=== PATIENT | female | born 1950 | race American Indian/Alaskan Native ===

== ENCOUNTER 2017-01-21 21:05 | Emergency (ER) | payer MEDICARE ==
[2017-01-21] MEDS ORDERED: NACL 0.9% 1000 ML 1,000 ML IV ONE (23:06)
[2017-01-21] MEDS ORDERED: ZOFRAN IV ONE (23:06)
[2017-01-21] MEDS ORDERED: MORPHINE IV ONE (23:06)
[2017-01-21 23:37] LABS: Basophils % (Auto) 0.8 % (0.0-1.8); Eosinophils % (Auto) 2.8 % (0.0-4.3); Hemoglobin 10.7 gm/dl (10.1-14.3); Mean Corpuscular HGB Conc 32 % (30-34); Mean Corpuscular Hemoglobin 30 pg (28-32); Mean Corpuscular Volume 92 fl (79-97); Platelet Count 316 K/mm3 (140-440); Red Cell Distribution Width 14.1 % (13.2-15.2); White Blood Count 5.6 K/mm3 (4.5-11.0)
[2017-01-21 23:55] LABS: Anion Gap 16 mmol/L; Blood Urea Nitrogen 38 mg/dL (7-17); Calcium 9.6 mg/dL (8.4-10.2); Carbon Dioxide 28 mmol/L (22-30); Chloride 99.5 mmol/L (98-107); Glucose 225 mg/dL (65-100); Potassium 3.5 mmol/L (3.6-5.0); Sodium 140 mmol/L (137-145)
[2017-01-22] MEDS ORDERED: NACL ONE (00:28)
--- NOTE | 2017-01-22 01:02 | Emergency Department Report ---
ED Abdominal Pain HPI - General Chief Complaint: Abdominal Pain Stated Complaint: ABD PAIN Time Seen by Provider: 01/21/17 22:57 Source: patient, EMS Mode of arrival: Stretcher Limitations: No Limitations - History of Present Illness Initial Comments: 66 year old female with hx of DM, CVA, and renal insufficiency presents with generalized abdominal pain for about 2 days that is worse today. family member ( son) is present and states that she was seen at [facility] and had an infection in her bowel. family cannot specify what type of infection. they states that she was admitted for 3 days and discharged with fu with Dr bishop, her GI doctor. states that the pain today is similar with associated NV. denies fever, cough, cp, sob. Severity scale (0 -10): 6 - Related Data Home Medications Medication Instructions Recorded Confirmed Last Taken Gabapentin [Neurontin] 400 mg PO BID 01/21/17 01/21/17 01/21/17 Hydrochlorothiazide [Hctz] 12.5 mg PO QDAY 01/21/17 01/21/17 01/21/17 Losartan [Cozaar] 100 mg PO QDAY 01/21/17 01/21/17 01/21/17 Simvastatin 80 mg PO QHS 01/21/17 01/21/17 01/21/17 cloNIDine [Catapres] 0.2 mg PO Q8HR 01/21/17 01/21/17 01/21/17 hydrALAZINE [Apresoline TAB] 50 mg PO TID 01/21/17 01/21/17 01/21/17 Previous Rx's Medication Instructions Recorded Last Taken Type Insulin Glargine,Hum.rec.anlog 20 unit SQ QHS #1 bottle 03/15/14 01/21/17 Rx [Lantus] Allergies Allergy/AdvReac Type Severity Reaction Status Date / Time metoclopramide HCl Allergy Swelling Verified 08/08/13 10:49 [From [facility]] ED Review of Systems ROS: Stated complaint: ABD PAIN Other details as noted in HPI Constitutional: denies: chills, fever Eyes: denies: eye pain, eye discharge, vision change ENT: denies: ear pain, throat pain Respiratory: denies: cough, shortness of breath, wheezing Cardiovascular: denies: chest pain, palpitations Endocrine: no symptoms reported Gastrointestinal: abdominal pain, nausea, vomiting. denies: diarrhea Genitourinary: denies: urgency, dysuria, discharge Musculoskeletal: denies: back pain, joint swelling, arthralgia Skin: denies: rash, lesions Neurological: denies: headache, weakness, paresthesias Psychiatric: denies: anxiety, depression Hematological/Lymphatic: denies: easy bleeding, easy bruising ED Past Medical Hx - Past Medical History Previous Medical History?: Yes Hx Hypertension: Yes Hx CVA: Yes Hx Heart Attack/AMI: No Hx Congestive Heart Failure: Yes Hx Diabetes: Yes Hx Deep Vein Thrombosis: No Hx Pulmonary Embolism: No Hx Liver Disease: No Hx Renal Disease: No Hx Sickle Cell Disease: No Hx Arthritis: No Hx Seizures: No Hx Kidney Stones: No Hx Asthma: No Hx COPD: No Hx Tuberculosis: No Hx Dementia: No Hx HIV: No - Surgical History Past Surgical History?: Yes Hx Coronary Stent: Yes Hx Open Heart Surgery: No Hx Pacemaker: No Hx Internal Defibrillator: No Hx Cholecystectomy: No Hx Appendectomy: No Hx Breast Surgery: No Additional Surgical History: Lumpectomy x2 (non cancerous), Left AKA - Social History Smoking Status: Never Smoker Substance Use Type: None - Medications Home Medications: Home Medications Medication Instructions Recorded Confirmed Last Taken Type Insulin Glargine,Hum.rec.anlog 20 unit SQ QHS #1 bottle 03/15/14 01/21/17 Rx [Lantus] Gabapentin [Neurontin] 400 mg PO BID 01/21/17 01/21/17 01/21/17 History Hydrochlorothiazide [Hctz] 12.5 mg PO QDAY 01/21/17 01/21/17 01/21/17 History Losartan [Cozaar] 100 mg PO QDAY 01/21/17 01/21/17 01/21/17 History Simvastatin 80 mg PO QHS 01/21/17 01/21/17 01/21/17 History cloNIDine [Catapres] 0.2 mg PO Q8HR 01/21/17 01/21/17 01/21/17 History hydrALAZINE [Apresoline TAB] 50 mg PO TID 01/21/17 01/21/17 01/21/17 History ED Physical Exam - General Limitations: No Limitations General appearance: alert, in no apparent distress - Head Head exam: Present: atraumatic, normocephalic - Eye Eye exam: Present: normal appearance - ENT ENT exam: Present: mucous membranes moist - Neck Neck exam: Present: normal inspection - Respiratory Respiratory exam: Present: normal lung sounds bilaterally. Absent: respiratory distress - Cardiovascular Cardiovascular Exam: Present: regular rate, normal rhythm. Absent: systolic murmur, diastolic murmur, rubs, gallop - GI/Abdominal GI/Abdominal exam: Present: soft, tenderness, normal bowel sounds. Absent: distended, guarding, rebound, rigid, diminished bowel sounds - Rectal Rectal exam: Present: deferred - Extremities Exam Extremities exam: Present: normal inspection - Back Exam Back exam: Present: normal inspection - Neurological Exam Neurological exam: Present: alert, oriented X3 - Psychiatric Psychiatric exam: Present: normal affect, normal mood - Skin Skin exam: Present: warm, dry, intact, normal color. Absent: rash ED Course Vital Signs 01/21/17 01/21/17 22:34 22:45 Temperature 98.0 F Pulse Rate 80 81 Respiratory 16 16 Rate Blood Pressure 165/79 Blood Pressure 165/79 165/79 [Left] O2 Sat by Pulse 98 165 H Oximetry ED Medical Decision Making - Lab Data Result diagrams: 01/21/17 23:21 01/21/17 23:21 Critical care attestation.: If time is entered above; I have spent that time in minutes in the direct care of this critically ill patient, excluding procedure time. ED Disposition Condition: Stable Instructions: Abdominal Pain (ED) Referrals: PRIMARY CARE, [Primary Care Provider] - 3-5 Days
--- NOTE | 2017-01-22 02:11 | Cat Scan Report ---
FINAL REPORT PROCEDURE: CT ABDOMEN PELVIS W CON TECHNIQUE: Computerized axial tomography of the abdomen and pelvis was performed after the IV injection of iodinated nonionic contrast. HISTORY: luq and lower abdominal pain COMPARISON: 02/04/2014 FINDINGS: Visualized lower thorax: There is a large pericardial effusion. There is atelectasis at the left lung base.. Liver: Normal size and attenuation. Spleen: Normal size and attenuation. Gallbladder and biliary system: Normal. Pancreas: Normal. Adrenals: Normal. Kidneys: Normal. GI tract: There is narrowing and thickening of the sigmoid colon. This could be due to contraction or colitis. Mass considered unlikely but colonoscopy may be indicated. There is a large amount of stool in the colon. There diverticulosis of the sigmoid and left colon. There is no diverticulitis. The stomach and small bowel and appendix are normal.. Lymph nodes and mesentery: Normal. Vasculature: Normal. Bladder: Normal. Reproductive organs: Uterus is intact. Ovaries are unremarkable.. Peritoneum: There is no ascites, free air, abscess or adenopathy.. Musculoskeletal structures: No significant abnormality. Other: None. IMPRESSION: There is narrowing and thickening of the sigmoid colon. This could be due to contraction or colitis. Mass considered unlikely but colonoscopy may be indicated. There is no colonic obstruction. There is a large amount of stool in the colon. There diverticulosis of the sigmoid and left colon. There is no diverticulitis. The stomach and small bowel and appendix are normal.. Uterus is intact. Ovaries are unremarkable.. There is no ascites, free air, abscess or adenopathy..
[2017-01-22 02:56] LABS: Bacteria,Urine 1+ /HPF (Negative); Bilirubin,Urine NEG (Negative); Blood,Urine NEG (Negative); Ketones,Urine NEG (Negative); Leukocyte Esterase,Urine LG (Negative); Mucus,Urine FEW /HPF; Nitrite,Urine NEG (Negative); Urobilinogen,Urine < 2.0 mg/dL (<2.0)
[2017-01-22] MEDS ORDERED: LEVAQUIN PO ONE (03:35)
[2017-01-22] MEDS ORDERED: FLAGYL PO ONE (03:35)
--- NOTE | 2017-01-22 03:37 | Event Note ---
Date: 01/22/17 Patient presented with nonspecific abdominal pain. CT scan suggests distal colitis versus constipation versus less likely malignancy. Laboratory studies reviewed, unremarkable, urinalysis suggestive of urinary tract infection. I personally gone back to reevaluate the patient. Her abdomen is soft and benign, and she is tolerating liquid feeds, and she feels improved. She'll be started empirically on Cipro, Flagyl, she will be given pain medication, nausea medication, the patient and family are close instructed to follow up with outpatient gastroenterology. They're specifically counseled to follow up with gastroenterology to exclude tumor/cancer/ malignancy. Family and patient verbalize understanding. Vital Signs 01/21/17 01/21/17 22:34 22:45 Temperature 98.0 F Pulse Rate 80 81 Respiratory 16 16 Rate Blood Pressure 165/79 Blood Pressure 165/79 165/79 [Left] O2 Sat by Pulse 98 165 H Oximetry Lab Results 01/21/17 01/21/17 01/22/17 Range/Units 23:21 23:21 00:16 WBC 5.6 (4.5-11.0) K/mm3 RBC 3.60 L (3.65-5.03) M/mm3 Hgb 10.7 (10.1-14.3) gm/dl Hct 33.0 (30.3-42.9) % MCV 92 (79-97) fl MCH 30 (28-32) pg MCHC 32 (30-34) % RDW 14.1 (13.2-15.2) % Plt Count 316 (140-440) K/mm3 Lymph % (Auto) 34.1 (13.4-35.0) % Scott % (Auto) 6.8 (0.0-7.3) % Eos % (Auto) 2.8 (0.0-4.3) % Baso % (Auto) 0.8 (0.0-1.8) % Lymph # 1.9 (1.2-5.4) K/mm3 Scott # 0.4 (0.0-0.8) K/mm3 Eos # 0.2 (0.0-0.4) K/mm3 Baso # 0.0 (0.0-0.1) K/mm3 Seg Neutrophils % 55.5 (40.0-70.0) % Seg Neutrophils # 3.1 (1.8-7.7) K/mm3 Sodium 140 (137-145) mmol/L Potassium 3.5 L (3.6-5.0) mmol/L Chloride 99.5 (98-107) mmol/L Carbon Dioxide 28 (22-30) mmol/L Anion Gap 16 mmol/L BUN 38 H (7-17) mg/dL Creatinine 0.8 (0.7-1.2) mg/dL Estimated GFR > 60 ml/min BUN/Creatinine Ratio 47.50 % Glucose 225 H (65-100) mg/dL Calcium 9.6 (8.4-10.2) mg/dL Lipase 43 (13-60) units/L Urine Color (Yellow) Urine Turbidity (Clear) Urine pH (5.0-7.0) Ur Specific [place] (1.003-1.030) Urine Protein (Negative) mg/dL Urine Glucose (UA) (Negative) mg/dL Urine Ketones (Negative) mg/dL Urine Blood (Negative) Urine Nitrite (Negative) Urine Bilirubin (Negative) Urine Urobilinogen (<2.0) mg/dL Ur Leukocyte Esterase (Negative) Urine WBC (Auto) (0.0-6.0) /HPF Urine RBC (Auto) (0.0-6.0) /HPF U Epithel Cells (Auto) (0-13.0) /HPF Urine Bacteria (Auto) (Negative) /HPF Amorphous Crystals Urine Mucus /HPF 01/22/17 Range/Units 02:30 WBC (4.5-11.0) K/mm3 RBC (3.65-5.03) M/mm3 Hgb (10.1-14.3) gm/dl Hct (30.3-42.9) % MCV (79-97) fl MCH (28-32) pg MCHC (30-34) % RDW (13.2-15.2) % Plt Count (140-440) K/mm3 Lymph % (Auto) (13.4-35.0) % Scott % (Auto) (0.0-7.3) % Eos % (Auto) (0.0-4.3) % Baso % (Auto) (0.0-1.8) % Lymph # (1.2-5.4) K/mm3 Scott # (0.0-0.8) K/mm3 Eos # (0.0-0.4) K/mm3 Baso # (0.0-0.1) K/mm3 Seg Neutrophils % (40.0-70.0) % Seg Neutrophils # (1.8-7.7) K/mm3 Sodium (137-145) mmol/L Potassium (3.6-5.0) mmol/L Chloride (98-107) mmol/L Carbon Dioxide (22-30) mmol/L Anion Gap mmol/L BUN (7-17) mg/dL Creatinine (0.7-1.2) mg/dL Estimated GFR ml/min BUN/Creatinine Ratio % Glucose (65-100) mg/dL Calcium (8.4-10.2) mg/dL Lipase (13-60) units/L Urine Color Yellow (Yellow) Urine Turbidity Clear (Clear) Urine pH 8.0 H (5.0-7.0) Ur Specific [place] 1.018 (1.003-1.030) Urine Protein 30 mg/dl (Negative) mg/dL Urine Glucose (UA) 150 (Negative) mg/dL Urine Ketones Neg (Negative) mg/dL Urine Blood Neg (Negative) Urine Nitrite Neg (Negative) Urine Bilirubin Neg (Negative) Urine Urobilinogen < 2.0 (<2.0) mg/dL Ur Leukocyte Esterase Lg (Negative) Urine WBC (Auto) 130.0 H (0.0-6.0) /HPF Urine RBC (Auto) 2.0 (0.0-6.0) /HPF U Epithel Cells (Auto) 1.0 (0-13.0) /HPF Urine Bacteria (Auto) 1+ (Negative) /HPF Amorphous Crystals 1+ Urine Mucus Few /HPF
[2017-01-22 04:25] VITALS: BP 163/86
== END 2017-01-22 04:22 | disposition home or self-care (01) ==
LOC: ED 21:05
DX: R10.84 Generalized abdominal pain (principal); Z86.73 Personal history of transient ischemic attack (TIA), and cerebral infarction without residual deficits; I50.9 Heart failure, unspecified; I10 Essential (primary) hypertension; E11.9 Type 2 diabetes mellitus without complications; Z79.4 Long term (current) use of insulin; Z88.8 Allergy status to other drugs, medicaments and biological substances; N28.9 Disorder of kidney and ureter, unspecified
CPT/HCPCS: 36415; 74177; 80048; 81001; 83690; 85025; 87086; 96361; 96374; 96375; 99285; J2270; J2405; J7030; Q9967; 87076; 87186

== ENCOUNTER 2017-05-28 18:21 | Emergency (ER) | payer MEDICARE ==
[2017-05-28] MEDS ORDERED: APRESOLINE IV ONE (18:55)
[2017-05-28 20:00] LABS: Basophils % (Auto) 0.8 % (0.0-1.8); Eosinophils % (Auto) 1.5 % (0.0-4.3); Hematocrit 35.4 % (30.3-42.9); Hemoglobin 11.6 gm/dl (10.1-14.3); Mean Corpuscular HGB Conc 33 % (30-34); Mean Corpuscular Hemoglobin 31 pg (28-32); Mean Corpuscular Volume 95 fl (79-97); Platelet Count 314 K/mm3 (140-440); Red Blood Count 3.72 M/mm3 (3.65-5.03); Red Cell Distribution Width 15.2 % (13.2-15.2); White Blood Count 5.4 K/mm3 (4.5-11.0)
[2017-05-28 20:08] LABS: Anion Gap 20 mmol/L; BUN/Creatinine Ratio 42.85; Blood Urea Nitrogen 30 mg/dL (7-17); Calcium 9.3 mg/dL (8.4-10.2); Carbon Dioxide 22 mmol/L (22-30); Chloride 101.2 mmol/L (98-107); Glucose 269 mg/dL (65-100); Potassium 3.4 mmol/L (3.6-5.0); Sodium 140 mmol/L (137-145)
[2017-05-28] MEDS ORDERED: NACL 0.9% 250ML 250 ML IV ONE (20:32)
[2017-05-28] MEDS ORDERED: DILAUDID IV ONE (20:32)
--- NOTE | 2017-05-28 20:33 | Emergency Department Report ---
ED General Adult HPI - General Chief complaint: Headache Stated complaint: N/V Time Seen by Provider: 05/28/17 19:59 Source: patient, family, EMS (ems notes not available at time of chart dictation), RN notes reviewed, old records reviewed Mode of arrival: Stretcher Limitations: Physical Limitation - History of Present Illness Initial comments: This is a 67-year-old female. She is previously known to me. Past medical history includes hypertension, diabetes, left-sided below-knee amputation, stroke. The patient presents to the ER with a complaint of headache and abdominal pain. The headache is sharp and on the scalp. It is not sudden or thunderclap in nature. It did not reach maximal intensity within an hour. There is no temporal pain. There is no claudication. Patient reports no change in vision. She cannot describe further exacerbating or relieving factors with the headache. The patient also complains of diffuse abdominal pain with nausea and vomiting. Abdominal pain is crampy and achy. It increases with palpation. It decreases with rest. Patient is not certain if she is having irritative or obstructive urinary symptoms. She can't recall the last time she had a bowel movement. -: Gradual Location: head, abdomen Severity scale (0 -10): 9 Quality: aching Consistency: other (per hpi) Improves with: other (per hpi) Associated Symptoms: headaches, loss of appetite, weakness - Related Data Home Medications Medication Instructions Recorded Confirmed Last Taken Gabapentin [Neurontin] 400 mg PO BID 01/21/17 01/21/17 01/21/17 Hydrochlorothiazide [Hctz] 12.5 mg PO QDAY 01/21/17 01/21/17 01/21/17 Losartan [Cozaar] 100 mg PO QDAY 01/21/17 01/21/17 01/21/17 Simvastatin 80 mg PO QHS 01/21/17 01/21/17 01/21/17 cloNIDine [Catapres] 0.2 mg PO Q8HR 01/21/17 01/21/17 01/21/17 hydrALAZINE [Apresoline TAB] 50 mg PO TID 01/21/17 01/21/17 01/21/17 Previous Rx's Medication Instructions Recorded Last Taken Type Insulin Glargine,Hum.rec.anlog 20 unit SQ QHS #1 bottle 03/15/14 01/21/17 Rx [Lantus] Ciprofloxacin HCl [Ciprofloxacin 500 mg PO BID #10 tablet 01/22/17 Unknown Rx TAB] Dicyclomine [Bentyl] 10 mg PO QID PRN #20 capsule 01/22/17 Unknown Rx Promethazine [Phenergan TAB] 25 mg PO Q8HR PRN #15 tab 01/22/17 Unknown Rx Promethazine [Phenergan] 25 mg AK Q6HR PRN #15 supp.rect 01/22/17 Unknown Rx metroNIDAZOLE [Flagyl] 500 mg PO Q8HR #15 tablet 01/22/17 Unknown Rx Nitrofurantoin [place]/M-Cryst 100 mg PO Q12HR #14 capsule 05/28/17 Unknown Rx [Macrobid CAP] Ondansetron [Zofran Odt] 4 mg PO QID PRN #20 tab.rapdis 05/28/17 Unknown Rx Polyethylene Glycol 3350 [Miralax 17 gm PO QDAY #30 packet 05/28/17 Unknown Rx 3350] Allergies Allergy/AdvReac Type Severity Reaction Status Date / Time metoclopramide HCl Allergy Swelling Verified 08/08/13 10:49 [From [facility]] ED Review of Systems ROS: Stated complaint: N/V Other details as noted in HPI Constitutional: malaise. denies: fever Eyes: denies: eye pain, eye discharge ENT: denies: epistaxis Respiratory: denies: cough Cardiovascular: denies: chest pain Gastrointestinal: abdominal pain, constipation Musculoskeletal: arthralgia, myalgia Skin: denies: lesions Neurological: headache, weakness Psychiatric: anxiety ED Past Medical Hx - Past Medical History Hx Hypertension: Yes Hx CVA: Yes Hx Heart Attack/AMI: No Hx Congestive Heart Failure: Yes Hx Diabetes: Yes Hx Deep Vein Thrombosis: No Hx Pulmonary Embolism: No Hx Liver Disease: No Hx Renal Disease: No Hx Sickle Cell Disease: No Hx Arthritis: No Hx Seizures: No Hx Kidney Stones: No Hx Asthma: No Hx COPD: No Hx Tuberculosis: No Hx Dementia: No Hx HIV: No - Surgical History Hx Coronary Stent: Yes Hx Open Heart Surgery: No Hx Pacemaker: No Hx Internal Defibrillator: No Hx Cholecystectomy: No Hx Appendectomy: No Hx Breast Surgery: No Additional Surgical History: Lumpectomy x2 (non cancerous), Left AKA - Social History Smoking Status: Never Smoker - Medications Home Medications: Home Medications Medication Instructions Recorded Confirmed Last Taken Type Insulin Glargine,Hum.rec.anlog 20 unit SQ QHS #1 bottle 03/15/14 01/21/17 Rx [Lantus] Gabapentin [Neurontin] 400 mg PO BID 01/21/17 01/21/17 01/21/17 History Hydrochlorothiazide [Hctz] 12.5 mg PO QDAY 01/21/17 01/21/17 01/21/17 History Losartan [Cozaar] 100 mg PO QDAY 01/21/17 01/21/17 01/21/17 History Simvastatin 80 mg PO QHS 01/21/17 01/21/17 01/21/17 History cloNIDine [Catapres] 0.2 mg PO Q8HR 01/21/17 01/21/17 01/21/17 History hydrALAZINE [Apresoline TAB] 50 mg PO TID 01/21/17 01/21/17 01/21/17 History Ciprofloxacin HCl [Ciprofloxacin 500 mg PO BID #10 tablet 01/22/17 Unknown Rx TAB] Dicyclomine [Bentyl] 10 mg PO QID PRN #20 capsule 01/22/17 Unknown Rx Promethazine [Phenergan TAB] 25 mg PO Q8HR PRN #15 tab 01/22/17 Unknown Rx Promethazine [Phenergan] 25 mg [place] Q6HR PRN #15 supp.rect 01/22/17 Unknown Rx metroNIDAZOLE [Flagyl] 500 mg PO Q8HR #15 tablet 01/22/17 Unknown Rx Nitrofurantoin [place]/M-Cryst 100 mg PO Q12HR #14 capsule 05/28/17 Unknown Rx [Macrobid CAP] Ondansetron [Zofran Odt] 4 mg PO QID PRN #20 tab.rapdis 05/28/17 Unknown Rx Polyethylene Glycol 3350 [Miralax 17 gm PO QDAY #30 packet 05/28/17 Unknown Rx 3350] ED Physical Exam - General Limitations: Physical Limitation General appearance: alert, in distress, obese - Head Head exam: Present: atraumatic, normocephalic - Eye Eye exam: Present: normal appearance, PERRL, EOMI, other (there is no temporal tenderness) - ENT ENT exam: Present: normal orophraynx, mucous membranes moist - Neck Neck exam: Present: normal inspection, full ROM. Absent: tenderness, meningismus - Respiratory Respiratory exam: Present: normal lung sounds bilaterally. Absent: respiratory distress, wheezes, rales, rhonchi, stridor, chest wall tenderness, accessory muscle use, decreased breath sounds, prolonged expiratory - Cardiovascular Cardiovascular Exam: Present: normal rhythm, tachycardia, normal heart sounds. Absent: systolic murmur, diastolic murmur, rubs, gallop - GI/Abdominal GI/Abdominal exam: Present: soft, tenderness, normal bowel sounds. Absent: distended, guarding, rebound, rigid, pulsatile mass - Rectal Rectal exam: Present: normal inspection (stage I sacral ulcer, no redness, pus or streaking) - Extremities Exam Extremities exam: Present: normal inspection, normal capillary refill, pedal edema, other (status post left lower extremity below-knee amputation. Chronic weakness in the right upper extremity. There is no palpable cord. There is a negative Homans sign. The right lower extremity.) - Back Exam Back exam: Present: normal inspection. Absent: full ROM, tenderness, paraspinal tenderness - Neurological Exam Neurological exam: Present: alert, other (patient is alert to name, andthat she is not Hospital. She is able to recognize her son. There is no obvious facial droop. The tongue is midline. Extraocular movements are intact bilaterally. 4 /5 strength right upper extremity. 5 out of 5 strength bilateral lower extremities. Sensation intact to light touch in 4 extremities.) - Psychiatric Psychiatric exam: Present: anxious - Skin Skin exam: Present: warm, dry, intact, normal color. Absent: rash ED Course Vital Signs 05/28/17 05/28/17 05/28/17 18:31 18:39 18:40 Temperature 99.4 F Pulse Rate 99 H 99 H 96 H Respiratory 18 18 Rate Blood Pressure 227/122 227/122 227/122 Blood Pressure [Right] O2 Sat by Pulse 99 99 Oximetry 05/28/17 05/28/17 05/28/17 18:50 19:00 19:10 Temperature Pulse Rate 93 H 98 H 102 H Respiratory 16 16 13 Rate Blood Pressure 226/116 235/112 209/100 Blood Pressure [Right] O2 Sat by Pulse 99 98 99 Oximetry 05/28/17 05/28/17 05/28/17 19:25 19:43 19:51 Temperature 99.6 F Pulse Rate 99 H 108 H Respiratory 16 22 Rate Blood Pressure 179/90 Blood Pressure 206/97 179/90 [Right] O2 Sat by Pulse 100 99 99 Oximetry 05/28/17 05/28/17 05/28/17 20:00 20:10 20:20 Temperature Pulse Rate 103 H 104 H 104 H Respiratory 16 22 14 Rate Blood Pressure 173/89 185/89 185/89 Blood Pressure [Right] O2 Sat by Pulse 99 99 99 Oximetry 05/28/17 05/28/17 05/28/17 20:30 20:40 20:50 Temperature Pulse Rate 105 H 95 H 103 H Respiratory 15 19 16 Rate Blood Pressure 206/97 206/97 221/106 Blood Pressure [Right] O2 Sat by Pulse 99 98 98 Oximetry 05/28/17 05/28/17 05/28/17 20:55 21:00 21:10 Temperature Pulse Rate 104 H 105 H Respiratory 22 17 17 Rate Blood Pressure 216/101 212/102 Blood Pressure [Right] O2 Sat by Pulse 98 100 Oximetry 05/28/17 05/28/17 05/28/17 21:15 21:20 21:25 Temperature Pulse Rate 107 H 100 H Respiratory 17 18 Rate Blood Pressure 212/102 214/87 Blood Pressure [Right] O2 Sat by Pulse 99 Oximetry 05/28/17 05/28/17 05/28/17 21:30 21:40 21:50 Temperature Pulse Rate 101 H 101 H Respiratory 13 17 20 Rate Blood Pressure 191/88 191/88 198/90 Blood Pressure [Right] O2 Sat by Pulse 99 Oximetry 05/28/17 05/28/17 05/28/17 22:30 22:45 23:30 Temperature Pulse Rate 103 H Respiratory 21 18 18 Rate Blood Pressure 165/102 159/93 Blood Pressure [Right] O2 Sat by Pulse 100 99 Oximetry 05/28/17 05/28/17 05/28/17 23:40 23:45 23:55 Temperature Pulse Rate Respiratory 18 Rate Blood Pressure 138/93 138/93 Blood Pressure [Right] O2 Sat by Pulse 90 Oximetry 05/29/17 00:00 Temperature Pulse Rate 102 H Respiratory 18 Rate Blood Pressure Blood Pressure 138/93 [Right] O2 Sat by Pulse 99 Oximetry - EJ/Peripheral Line Neck L Time Out Performed: Yes Indications: multiple IV sites needed Skin Cleansed in Sterile Fashion: Yes Size: 20 Dressing Placed: Tegaderm Patient Tolerated Procedure: well ED Medical Decision Making - Lab Data Result diagrams: 05/28/17 19:37 05/28/17 19:37 Vital Signs 05/28/17 05/28/17 05/28/17 18:31 18:39 18:40 Temperature 99.4 F Pulse Rate 99 H 99 H 96 H Respiratory 18 18 Rate Blood Pressure 227/122 227/122 227/122 Blood Pressure [Right] O2 Sat by Pulse 99 99 Oximetry 05/28/17 05/28/17 05/28/17 18:50 19:00 19:10 Temperature Pulse Rate 93 H 98 H 102 H Respiratory 16 16 13 Rate Blood Pressure 226/116 235/112 209/100 Blood Pressure [Right] O2 Sat by Pulse 99 98 99 Oximetry 05/28/17 05/28/17 05/28/17 19:25 19:43 19:51 Temperature 99.6 F Pulse Rate 99 H 108 H Respiratory 16 22 Rate Blood Pressure 179/90 Blood Pressure 206/97 179/90 [Right] O2 Sat by Pulse 100 99 99 Oximetry 05/28/17 05/28/17 05/28/17 20:00 20:10 20:20 Temperature Pulse Rate 103 H 104 H 104 H Respiratory 16 20 14 Rate Blood Pressure 173/89 185/89 185/89 Blood Pressure [Right] O2 Sat by Pulse 99 99 99 Oximetry 05/28/17 05/28/17 05/28/17 20:30 20:40 20:50 Temperature Pulse Rate 105 H 95 H 103 H Respiratory 15 19 16 Rate Blood Pressure 206/97 206/97 221/106 Blood Pressure [Right] O2 Sat by Pulse 99 98 98 Oximetry 05/28/17 05/28/17 05/28/17 20:55 21:00 21:10 Temperature Pulse Rate 104 H 105 H Respiratory 22 17 17 Rate Blood Pressure 216/101 212/102 Blood Pressure [Right] O2 Sat by Pulse 98 100 Oximetry 05/28/17 05/28/17 05/28/17 21:15 21:20 21:30 Temperature Pulse Rate 107 H 100 H 101 H Respiratory 17 13 Rate Blood Pressure 212/102 214/87 191/88 Blood Pressure [Right] O2 Sat by Pulse 99 Oximetry 05/28/17 05/28/17 21:40 21:50 Temperature Pulse Rate 101 H Respiratory 17 20 Rate Blood Pressure 191/88 198/90 Blood Pressure [Right] O2 Sat by Pulse 99 Oximetry Lab Results 05/28/17 05/28/17 05/28/17 Range/Units 19:37 19:37 19:37 WBC 5.4 (4.5-11.0) K/mm3 RBC 3.72 (3.65-5.03) M/mm3 Hgb 11.6 (10.1-14.3) gm/dl Hct 35.4 (30.3-42.9) % MCV 95 (79-97) fl MCH 31 (28-32) pg MCHC 33 (30-34) % RDW 15.2 (13.2-15.2) % Plt Count 314 (140-440) K/mm3 Lymph % (Auto) 28.9 (13.4-35.0) % [place] % (Auto) 6.8 (0.0-7.3) % Eos % (Auto) 1.5 (0.0-4.3) % Baso % (Auto) 0.8 (0.0-1.8) % Lymph # 1.6 (1.2-5.4) K/mm3 [place] # 0.4 (0.0-0.8) K/mm3 Eos # 0.1 (0.0-0.4) K/mm3 Baso # 0.0 (0.0-0.1) K/mm3 Seg Neutrophils % 62.0 (40.0-70.0) % Seg Neutrophils # 3.3 (1.8-7.7) K/mm3 Sodium 140 (137-145) mmol/L Potassium 3.4 L (3.6-5.0) mmol/L Chloride 101.2 (98-107) mmol/L Carbon Dioxide 22 (22-30) mmol/L Anion Gap 20 mmol/L BUN 30 H (7-17) mg/dL Creatinine 0.7 (0.7-1.2) mg/dL Estimated GFR > 60 ml/min BUN/Creatinine Ratio 42.85 % Glucose 269 H (65-100) mg/dL Calcium 9.3 (8.4-10.2) mg/dL Total Bilirubin 0.30 (0.1-1.2) mg/dL Direct Bilirubin < 0.2 (0-0.2) mg/dL Indirect Bilirubin 0.1 mg/dL AST 11 (5-40) units/L ALT 10 (7-56) units/L Alkaline Phosphatase 54 (35-129) units/L Total Protein 7.6 (6.3-8.2) g/dL Albumin 3.8 L (3.9-5) g/dL Albumin/Globulin Ratio 1.0 % Lipase 55 (13-60) units/L Urine Color (Yellow) Urine Turbidity (Clear) Urine pH (5.0-7.0) Ur Specific Lynn (1.003-1.030) Urine Protein (Negative) mg/dL Urine Glucose (UA) (Negative) mg/dL Urine Ketones (Negative) mg/dL Urine Blood (Negative) Urine Nitrite (Negative) Urine Bilirubin (Negative) Urine Urobilinogen (<2.0) mg/dL Ur Leukocyte Esterase (Negative) Urine WBC (Auto) (0.0-6.0) /HPF Urine RBC (Auto) (0.0-6.0) /HPF U Epithel Cells (Auto) (0-13.0) /HPF Amorphous Crystals / Range/Units 20:48 WBC (4.5-11.0) K/mm3 RBC (3.65-5.03) M/mm3 Hgb (10.1-14.3) gm/dl Hct (30.3-42.9) % MCV (79-97) fl MCH (28-32) pg MCHC (30-34) % RDW (13.2-15.2) % Plt Count (140-440) K/mm3 Lymph % (Auto) (13.4-35.0) % [place] % (Auto) (0.0-7.3) % Eos % (Auto) (0.0-4.3) % Baso % (Auto) (0.0-1.8) % Lymph # (1.2-5.4) K/mm3 [place] # (0.0-0.8) K/mm3 Eos # (0.0-0.4) K/mm3 Baso # (0.0-0.1) K/mm3 Seg Neutrophils % (40.0-70.0) % Seg Neutrophils # (1.8-7.7) K/mm3 Sodium (137-145) mmol/L Potassium (3.6-5.0) mmol/L Chloride (98-107) mmol/L Carbon Dioxide (22-30) mmol/L Anion Gap mmol/L BUN (7-17) mg/dL Creatinine (0.7-1.2) mg/dL Estimated GFR ml/min BUN/Creatinine Ratio % Glucose (65-100) mg/dL Calcium (8.4-10.2) mg/dL Total Bilirubin (0.1-1.2) mg/dL Direct Bilirubin (0-0.2) mg/dL Indirect Bilirubin mg/dL AST (5-40) units/L ALT (7-56) units/L Alkaline Phosphatase (35-129) units/L Total Protein (6.3-8.2) g/dL Albumin (3.9-5) g/dL Albumin/Globulin Ratio % Lipase (13-60) units/L Urine Color Straw (Yellow) Urine Turbidity Clear (Clear) Urine pH 6.0 (5.0-7.0) Ur Specific Lynn 1.014 (1.003-1.030) Urine Protein 100 mg/dl (Negative) mg/dL Urine Glucose (UA) >=500 (Negative) mg/dL Urine Ketones Tr (Negative) mg/dL Urine Blood Neg (Negative) Urine Nitrite Neg (Negative) Urine Bilirubin Neg (Negative) Urine Urobilinogen < 2.0 (<2.0) mg/dL Ur Leukocyte Esterase Sm (Negative) Urine WBC (Auto) 18.0 H (0.0-6.0) /HPF Urine RBC (Auto) 2.0 (0.0-6.0) /HPF U Epithel Cells (Auto) < 1.0 (0-13.0) /HPF Amorphous Crystals Few - EKG Data -: EKG Interpreted by Al - EKG Data 05/28/17 22:11 Sinus tachycardia, 105 bpm, QTC 507 ms, multiple premature ventricular contractions, left ventricular hypertrophy, abnormal EKG, not morphologically consistent with STEMI, appears unchanged when compared to prior from 2013, with the exception of premature ventricular contractions. - Radiology Data Radiology results: report reviewed, image reviewed Noncontrast CT scan demonstrates no acute findings, chronic changes when compared to old CT scan and MR. CT scan of the abdomen and pelvis demonstrate constipation. Normal appendix. - Medical Decision Making Differential diagnosis: Migraine headache, tension headache, poorly controlled hypertension, anxiety, constipation, urinary tract infection, colitis, diverticulitis, obstruction Assessment and plan: 67-year-old female with a complaint of headache and abdominal pain. She is quite anxious, and she is a very poor historian. Family at the bedside, they indicated the patient is at her baseline mental status. Patient was treated aggressively for hypertension, her pain was treated aggressively as well. Given history of chronic hypertension, I am reluctant to aggressively and dramatically decreased her blood pressure, as this will predispose her towards stroke. Noncontrast CT scan of the brain was negative for acute findings, CT scan of the abdomen and pelvis suggested constipation, patient was given a glycerin suppository, the nursing staff was able to evacuate a fecal load. Urinalysis suggestive of urinary tract infection. Extensive discussion had with patient's son. I informed family that given constipation, it would likely take weeks to months to improve. I sterilely recommended diet and lifestyle modifications. Patient will also be discharged with MiraLAX. Extensive discussion had with patient's son regarding hypertension, I informed the patient's son that this is a chronic problem, and is to be followed up and managed by her outpatient primary care doctor. I further instructed the family that dramatically lowering the patient's blood pressure could predispose her towards stroke. Her blood pressure still somewhat elevated in the 190s, but improved from before. She should follow-up with her outpatient primary care doctor for further evaluation and management of his chronic medical issue. Critical care attestation.: If time is entered above; I have spent that time in minutes in the direct care of this critically ill patient, excluding procedure time. ED Disposition Clinical Impression: Headache, Abdominal pain, Hypertension Disposition: DC-01 TO HOME OR SELFCARE Is pt being admited?: No Does the pt Need Aspirin: No Condition: Stable Instructions: Hypertension (ED) Additional Instructions: Take the medications as directed. Please note that CT scan demonstrated impressive constipation. Constipation typically takes weeks to months to improve. Increased water consumption to 4-6 cups of were daily. Patient should consume plenty of fruits, fibers, vegetables. Use the MiraLAX as directed. Take the nausea medication as directed. Patient can take acetaminophen, which can be purchased [id number], every 4 -6 hours as needed for abdominal pain. This can be alternated with ibuprofen. Patient had a number of chronic medical issues which she to follow up by her outpatient primary care doctor within the next 7-10 days, including elevated blood pressure and elevated blood sugar. Long-term complications of hypertension and elevated blood sugar include stroke, heart attack, disability, , paralysis, loss of quality of life. Return to the ER right away with new pain, worsened pain, migration of pain, fevers, chills, confusion, intractable nausea or vomiting, inability to tolerate liquid feeds. Prescriptions: Nitrofurantoin [place]/M-Cryst [Macrobid CAP] 100 mg PO Q12HR #14 capsule Ondansetron [Zofran Odt] 4 mg PO QID PRN #20 tab.rapdis PRN Reason: Nausea Polyethylene Glycol 3350 [Miralax 3350] 17 gm PO QDAY #30 packet Referrals: PRIMARY CARE, [Primary Care Provider] - 3-5 Days MELLISSA GREEN MD [Staff Physician] - 3-5 Days JUNE RG MD [Staff Physician] - 3-5 Days
--- NOTE | 2017-05-28 20:39 | Cat Scan Report ---
FINAL REPORT PROCEDURE: CT HEAD/BRAIN WO CON TECHNIQUE: Computerized tomography of the head was performed without contrast material. HISTORY: hbp/ headache COMPARISON: No prior studies are available for comparison. FINDINGS: Skull and scalp: Normal. Paranasal sinuses: There is near complete opacification of right maxillary sinus with areas of calcification.. Ventricles and subarachnoid spaces: Are prominent consistent with cerebral atrophy. Cerebrum: Moderate degree of bilateral periventricular nonspecific white matter hypodensity is noted. Bilateral basal ganglia demonstrate symmetric hyperdense areas measuring 7.5 millimeters without any mass effect. An old lacunar infarct is noted in the right basal ganglia.. Cerebellum and brainstem: Prominent cerebellar sulci are noted without any mass effect or intracranial hemorrhage Vasculature: Atherosclerotic calcification is noted involving bilateral internal carotid and vertebral arteries.. Comments: None. IMPRESSION: Bilateral symmetric basal ganglionic hyperdense foci most likely represent benign calcifications. Comparison with any prior studies would be of help Old lacunar infarct right basal ganglia Nonspecific cerebral white matter hypodensity most likely represents chronic microangiopathy Cerebral atrophy appropriate for patient's age Chronic right maxillary sinusitis
--- NOTE | 2017-05-28 20:46 | Cat Scan Report ---
FINAL REPORT PROCEDURE: CT ABDOMEN PELVIS WO CON TECHNIQUE: Computerized axial tomography of the abdomen and pelvis was performed without intravenous contrast. This study is performed without intravascular contrast material and its sensitivity for abdominal and pelvic pathology, including neoplasms, inflammation, abscess, free fluid, thrombosis, arterial dissection and infarction, is reduced compared with a contrast enhanced study. HISTORY: hbp/ headache COMPARISON: No prior studies are available for comparison. FINDINGS: Mild degree of bronchiectatic changes are noted involving bilateral lung lower lobes. Liver, spleen, and adrenal glands are within normal limits. Bilateral kidneys demonstrate uniform density without calculi or hydronephrosis. Aorta is of normal caliber. There is no free fluid or free air. Gallbladder is unremarkable. Small bowel loops are within normal limits. Multiple colonic diverticular are noted without evidence of diverticulitis. Large amount of residual stool is noted. Appendix is normal. Isodense lesion measuring about 1.3 centimeters is noted involving uterus body. There are additional small foci of calcification involving the uterine body most likely representing fibroids.. IMPRESSION: Large amount of residual stool consistent with constipation. Mild degree bronchiectatic changes of visualized bilateral lung bases. A small isodense lesion of uterus and small uterine calcifications are consistent with fibroids..
[2017-05-28 20:53] LABS: Alanine Aminotransferase 10 units/L (7-56); Albumin 3.8 g/dL (3.9-5); Alkaline Phosphatase 54 units/L (35-129); Lipase 55 units/L (13-60); Total Protein 7.6 g/dL (6.3-8.2)
[2017-05-28 20:56] LABS: Bilirubin,Direct < 0.2 mg/dL (0-0.2); Bilirubin,Indirect 0.1 mg/dL
[2017-05-28 21:08] LABS: Bilirubin,Urine NEG (Negative); Blood,Urine NEG (Negative); Ketones,Urine TR mg/dL (Negative); Leukocyte Esterase,Urine SM (Negative); Nitrite,Urine NEG (Negative); Urobilinogen,Urine < 2.0 mg/dL (<2.0)
[2017-05-28] MEDS ORDERED: NORMODYNE IV ONE (21:08)
[2017-05-28] MEDS ORDERED: GLYCERIN ADULT 2 GM PR ONE (21:19)
[2017-05-28] MEDS ORDERED: TYLENOL PO ONE (22:28)
[2017-05-29 00:06] VITALS: BP 138/93
== END 2017-05-29 00:11 | disposition home or self-care (01) ==
LOC: ED 18:21
DX: R51 Headache (principal); R10.84 Generalized abdominal pain; I10 Essential (primary) hypertension; I50.9 Heart failure, unspecified; E11.9 Type 2 diabetes mellitus without complications; Z86.73 Personal history of transient ischemic attack (TIA), and cerebral infarction without residual deficits; Z90.89 Acquired absence of other organs; Z79.4 Long term (current) use of insulin; Z88.8 Allergy status to other drugs, medicaments and biological substances
CPT/HCPCS: 36415; 36569; 70450; 74176; 80048; 80074; 81001; 83690; 85025; 93005; 93010; 96361; 96374; 96375; 99285; J0360; J1170; J7050